=== PATIENT | male | born 1980 ===

== ENCOUNTER 2025-04-13 06:00 | Day surgery (SDC) | payer OTHER ==
[2025-04-06 09:55] LABS: BASO % 0.4 % (0.1-1.2); EOS # 0.06 (0.04-0.54); EOS % 0.8 % (0.7-7.0); LYMPH # 1.43 (1.18-3.74); LYMPH % 18.7 % (19.3-53.1); MEAN PLATELET VOLUME 9.40 fl (9.4-12.4); MONO # 0.55 (0.24-0.82); MONO % 7.2 % (4.7-12.5); NEUT # 5.58 (1.56-6.13); NEUT % 72.8 % (34.0-71.1); RED CELL DISTRIBUTION WIDTH 13.8 % (11.6-14.4)
[2025-04-06 10:20] LABS: INR 1.06
[2025-04-06 10:48] LABS: ALT/SGPT 31.0 U/L (12-78); AST/SGOT 11.0 U/L (15-37); BILIRUBIN TOTAL 0.5 mg/dL (0.3-1.2); BUN CREA RATIO 15.0 (7.0-25.0); CREATININE SERUM 0.93 mg/dL (0.70-1.30); GFR 88.68; GLOBULINA 3.3 G/DL (2.4-3.5); GLUCOSE FASTING 112.0 mg/dL (65-100); OSMOLALITY SERUM 286.0 MOSM/KG (275-295)
[~2025-04-13 06:00] MED LIST: 24HOUR ALLERGY10 MG PO; AZELASTINE HCL6 ML OPHT; PROAIR RESPICL90 MCG IH; SINGULAIR10 MG PO; SPIRIVA RESPIMAT4 G1 IH; SYMBICORT 16010.2 GM IH; TOPROL XL25 M1 PO
[2025-04-13] MEDS ORDERED: CEFOXITIN SODIUM 2,000 MG VIAL IV ONE (06:32)
[2025-04-13] MEDS ORDERED: BUPIVACAINE HCL/MPF 0.5% 30ML VIAL ONE (07:17)
[2025-04-13] MEDS ORDERED: LIDOCAINE HCL 1%/EPINEPHRINE 20ML VIAL IJ ONE (07:46)
[2025-04-13] MEDS ORDERED: CHLORHEXIDINE GLUCONATE 120 ML BOTTLE TOP ONE (08:44)
[2025-04-13] MEDS ORDERED: SUGAMMADEX SODIUM 200 MG/2 ML VIAL IV ONE (08:44)
== END 2025-04-13 13:25 | disposition home or self-care (01) ==
LOC: CIR.AMB 06:00
PROVIDERS: ATTEND Colon & Rectal Surgery
DX: K80.10 Calculus of gallbladder with chronic cholecystitis without obstruction (principal)